=== PATIENT | male | born 1935 | race Two or more races ===

== ENCOUNTER 2017-12-31 11:57 | Outpatient (CLI) | payer OTHER ==
[~2017-12-31 11:57] MED LIST: ALDACTONE25 MG; CALAN80 MG; CLOPIDOGREL BIS75 MG PO; Coreg PO; LASIX20 MG; LASIX20 MG PO; LATANOPROST2.5 ML; PEPCID40 MG; PLAVIX75 MG; SPIRONOLACTONE25 MG PO; TAMS0.4C; TAMS0.4C PO
== END 2017-12-31 12:03 | disposition home or self-care (01) ==
LOC: TOM 11:57
DX: R55 Syncope and collapse (principal); Z86.73 Personal history of transient ischemic attack (TIA), and cerebral infarction without residual deficits

== ENCOUNTER 2018-04-16 10:10 | Outpatient (CLI) | payer OTHER ==
[~2018-04-16 10:10] MED LIST changes: +AMITIZA24 MCG; +GENERLAC10 GM/15 M; +PROSCAR5 MG
== END 2018-04-16 10:20 | disposition home or self-care (01) ==
LOC: SONOGRAMA 10:10
DX: N40.0 Benign prostatic hyperplasia without lower urinary tract symptoms (principal); I12.9 Hypertensive chronic kidney disease with stage 1 through stage 4 chronic kidney disease, or unspecified chronic kidney disease; R18.0 Malignant ascites

== ENCOUNTER 2018-06-04 14:34 | Outpatient (CLI) | payer OTHER | END 2018-06-04 14:39 | disposition home or self-care (01) | LOC: RAD 14:34 | DX: M17.0 Bilateral primary osteoarthritis of knee (principal); M16.12 Unilateral primary osteoarthritis, left hip; M16.11 Unilateral primary osteoarthritis, right hip ==

== ENCOUNTER 2018-06-14 11:17 | Emergency (ER) | payer OTHER ==
[~2018-06-14] VITALS: Ht 167.6 cm; Wt 68.0 kg
[2018-06-14] MEDS ORDERED: CARVEDILOL3.125 MG (12:05)
[2018-06-14] MEDS ORDERED: ALDACTONE25 MG (12:08)
== END 2018-06-14 15:26 | disposition home or self-care (01) ==
LOC: ER 11:17
DX: N39.0 Urinary tract infection, site not specified (principal); R31.0 Gross hematuria; B96.29 Other Escherichia coli [E. coli] as the cause of diseases classified elsewhere

== ENCOUNTER 2018-08-22 14:38 | Inpatient (IN) | payer OTHER ==
[~2018-08-22] VITALS: Ht 167.6 cm; Wt 68.0 kg
[~2018-08-22 14:38] MED LIST changes: +CARVEDILOL3.125 MG
== END 2018-08-27 10:20 | disposition home or self-care (01) | DRG 292 ==
LOC: ER 14:38 → SEC-K 22:02 → MEDJ 22:02 → MEDI 08-23 00:28 → MEDJ 08-23 00:28
PROC: BW25ZZZ Computerized Tomography (CT Scan) of Chest, Abdomen and Pelvis (ICD-10-PCS; 2018-08-22)
PROC: BW24ZZZ Computerized Tomography (CT Scan) of Chest and Abdomen (ICD-10-PCS; 2018-08-22)
PROC: 4A033R1 Measurement of Arterial Saturation, Peripheral, Percutaneous Approach (ICD-10-PCS; 2018-08-22)
PROC: 4A12X4Z Monitoring of Cardiac Electrical Activity, External Approach (ICD-10-PCS; principal; 2018-08-23)
PROC: B246ZZZ Ultrasonography of Right and Left Heart (ICD-10-PCS; 2018-08-23)
DX: I11.0 Hypertensive heart disease with heart failure (principal); J91.8 Pleural effusion in other conditions classified elsewhere; N39.0 Urinary tract infection, site not specified; K57.32 Diverticulitis of large intestine without perforation or abscess without bleeding; J98.11 Atelectasis; I50.23 Acute on chronic systolic (congestive) heart failure; R31.0 Gross hematuria; N40.1 Benign prostatic hyperplasia with lower urinary tract symptoms; R33.8 Other retention of urine; I25.10 Atherosclerotic heart disease of native coronary artery without angina pectoris; D69.59 Other secondary thrombocytopenia; N20.0 Calculus of kidney; Q54.1 Hypospadias, penile; Z79.01 Long term (current) use of anticoagulants; B96.1 Klebsiella pneumoniae [K. pneumoniae] as the cause of diseases classified elsewhere; I34.0 Nonrheumatic mitral (valve) insufficiency; I27.29 Other secondary pulmonary hypertension; Z86.73 Personal history of transient ischemic attack (TIA), and cerebral infarction without residual deficits; I48.2 Chronic atrial fibrillation; Z53.29 Procedure and treatment not carried out because of patient's decision for other reasons; Z16.12 Extended spectrum beta lactamase (ESBL) resistance